=== PATIENT | male | born 1995 | race Caucasian/White ===

== ENCOUNTER 2021-11-07 04:09 | Emergency (ER) | payer SELFPAY ==
[~2021-11-07] VITALS: Ht 167.6 cm; Wt 72.7 kg
[~2021-11-07 04:09] MED LIST: CEPHALEXIN500 M1 PO; DOXYCYCLINE HY100 MG PO
[2021-11-07 04:11] VITALS: TEMP 98.1
[2021-11-07] MEDS ORDERED: NORCO 325 MG-51 TAB PO (05:42)
[2021-11-07 05:55] VITALS: BP 133/73; PULSE 108
== END 2021-11-07 05:53 | disposition home or self-care (01) ==
LOC: COL.ER 04:09
DX: R22.1 Localized swelling, mass and lump, neck (principal); F17.200 Nicotine dependence, unspecified, uncomplicated

== ENCOUNTER 2021-11-07 10:29 | Emergency (ER) | payer SELFPAY ==
[~2021-11-07] VITALS: Ht 167.6 cm; Wt 72.7 kg
[~2021-11-07 10:29] MED LIST changes: +NORCO 325 MG-51 TAB PO
[2021-11-07 10:36] VITALS: BP 148/79; TEMP 98.7
[2021-11-07 11:12] VITALS: PULSE 113
== END 2021-11-07 11:13 | disposition left against medical advice (07) ==
LOC: COL.ER 10:29
DX: F15.10 Other stimulant abuse, uncomplicated (principal); F22 Delusional disorders

== ENCOUNTER 2022-01-06 17:12 | Emergency (ER) | payer SELFPAY ==
[~2022-01-06] VITALS: Ht 182.9 cm; Wt 81.8 kg
[2022-01-06 17:15] VITALS: TEMP 98.7
[2022-01-06 17:42] LABS: BASO % 0.4 % (0.0-2.0); EOS # 0.1 K/mm3 (0.0-0.7); EOS % 1.2 % (0.0-4.0); GRAN # 2.8 K/mm3 (1.4-6.5); GRAN % 53.8 % (42.2-75.2); HEMATOCRIT 40.6 % (42.0-52.0); LYMPH # 1.6 K/mm3 (1.2-3.4); LYMPH % 31.5 % (20.0-51.0); MEAN CELL VOLUME 84 fl (80.0-100.0); MEAN CORPUSCULAR HEMOGLOBIN 29 pg (27-31); MEAN CORPUSCULAR HGB CONC 35 g/dl (33.0-37.0); MEAN PLATELET VOLUME 8.7 fl (7.4-10.4); MONO # 0.6 K/mm3 (0.1-0.6); MONO % 12.5 % (1.7-9.3); PLATELET COUNT 289 K/mm3 (130-400); RED BLOOD COUNT 4.82 M/mm3 (4.20-5.60)
[2022-01-06 18:29] VITALS: BP 128/61; PULSE 80
== END 2022-01-06 18:28 | disposition home or self-care (01) ==
LOC: COL.ER 17:12
PROVIDERS: Emergency Medicine
DX: R07.89 Other chest pain (principal); Z28.310 Unvaccinated for COVID-19
CPT/HCPCS: J1885